=== PATIENT | male | born 1960 | race Caucasian/White ===

== ENCOUNTER 2018-05-01 10:52 | Inpatient (IN) | payer OTHER ==
[2018-05-01 12:21] VITALS: BMI 29.2
--- NOTE | 2018-05-01 14:37 | HP ---
CIWA Score - CIWA Score Nausea/Vomitin-Mild Nausea/No Vomiting Muscle Tremors: 4-Moderate,w/Arms Extend Anxiety: 4-Mod. Anxious/Guarded Agitation: 4-Moderately Restless Paroxysmal Sweats: 1-Minimal Palms Moist Orientation: 0-Oriented Tacttile Disturbances: 2-Mild Itch/Numbness/Burn Auditory Disturbances: 0-None Visual Disturbances: 0-None Headache: 0-None Present CIWA-Ar Total Score: 16 Admission ROS S - HPI Chief Complaint: ALCOHOL WITHDRAWAL SX Allergies/Adverse Reactions: Allergies Allergy/AdvReac Type Severity Reaction Status Date / Time penicillin G Allergy Severe Swelling Verified 05/01/18 13:03 History of Present Illness: 57 YEARS OLD MALE WITH LONG HISTORY OF ALCOHOL DEPENDENCE HAS ASTHMA HYPERCHOLESTEROLEMIA HYPERTENSION DIABETES II POSITIVE PPD AND DEPRESSION IS ADMITTED TO DETOX Exam Limitations: No Limitations - Ebola screening Have you traveled outside of the country in the last 21 days: No Have you had contact with anyone from an Ebola affected area: No Have you been sick,other than usual withdrawal symptoms: No Do you have a fever: No - Review of Systems Constitutional: Changes in sleep, Weight Stable EENT: reports: No Symptoms Reported Respiratory: reports: SOB with Exertion Cardiac: reports: No Symptoms Reported GI: reports: Nausea, Poor Fluid Intake, Abdominal cramping : reports: No Symptoms Reported Musculoskeletal: reports: No Symptoms Reported Integumentary: reports: No Symptoms Reported Neuro: reports: Tremors Endocrine: reports: Increased Urine Hematology: reports: No Symptoms Reported Psychiatric: reports: Judgement Intact, Orientated x3, Anxious, Depressed Other Systems: Reviewed and Negative Patient History - Patient Medical History Hx Anemia: No Hx Asthma: Yes Hx Chronic Obstructive Pulmonary Disease (COPD): No Hx Cancer: No Hx Cardiac Disorders: Yes (stent x1 in 2007/CABAG 2016) Hx Congestive Heart Failure: No Hx Hypertension: Yes Hx Hypercholesterolemia: Yes Hx Pacemaker: No HX Cerebrovascular Accident: No Hx Seizures: No Hx Dementia: No Hx Diabetes: Yes (NIDDM) Hx Gastrointestinal Disorders: No Hx Liver Disease: No Hx Genitourinary Disorders: No Hx Sexually Transmitted Disorders: No Hx Renal Disease (ESRD): No Hx Thyroid Disease: No Hx Human Immunodeficiency Virus (HIV): No Hx Hepatitis C: Yes (FATTY LIVER) Hx Depression: Yes Hx Suicide Attempt: No Hx Bipolar Disorder: No Hx Schizophrenia: No - Patient Surgical History Past Surgical History: Yes Hx Neurologic Surgery: No Hx Cataract Extraction: No Hx Cardiac Surgery: Yes (stent x1 in 2007/cardiac catheterization x2) Hx Lung Surgery: Yes (pneumothorax/chest tube in 1983) Hx Breast Surgery: No Hx Breast Biopsy: No Hx Abdominal Surgery: No Hx Appendectomy: No Hx Cholecystectomy: No Hx Genitourinary Surgery: No Hx Orthopedic Surgery: Yes (RIGHT ANKLE 2009) Anesthesia Reaction: No - PPD History Previous Implant?: Yes Documented Results: Positive w/o proof Implanted On Prior [facility] Admission?: No PPD to be Administered?: No - Smoking Cessation Smoking history: Never smoked Have you smoked in the past 12 months: No Hx Chewing Tobacco Use: No Initiated information on smoking cessation: No - Substance & Tx. History Hx Alcohol Use: Yes Hx Substance Use: No Hx Substance Use Treatment: No - Substances Abused Alcohol-beer Route: Oral Frequency: Daily Amount used: 2-6 pks. Age of first use: 17 Date of Last Use: 05/01/18 Family Disease History - Family Disease History Family Disease History: Diabetes: Grandparent, Brother, Sister, Heart Disease: Father (), Mother, Brother, Other: Father Admission Physical Exam S - Vital Signs Vital Signs: Vital Signs - 24 hr 05/01/18 12:16 Temperature 100.3 F H Pulse Rate 84 Respiratory 20 Rate Blood Pressure 139/73 - Physical General Appearance: Yes: Appropriately Dressed, Mild Distress, Alcohol on Breath , Tremorous, Irritable, Sweating, Anxious HEENTM: Yes: Hearing grossly Normal, Normocephalic, Normal Voice Respiratory: Yes: Chest Non-Tender, No Respiratory Distress, No Accessory Muscle Use, Wheezing, Expiration Neck: Yes: Supple, Trachea in good position Breast: Yes: Breasts Symetrical, No Discharge Cardiology: Yes: Regular Rhythm, Regular Rate, S1, S2 Abdominal: Yes: Normal Bowel Sounds, Non Tender, Flat, Soft Genitourinary: Yes: Within Normal Limits Back: Yes: Normal Inspection Musculoskeletal: Yes: full range of Motion, Gait Steady, Muscle Pain (RIGHT ANKLE) Extremities: Yes: Normal Inspection, Normal Range of Motion, Non-Tender, Tremors , Swelling (RIGHT ANKLE) Neurological: Yes: Fully Oriented, Alert, Motor Strength 5/5, Normal Response, Depressed Affect Integumentary: Yes: Warm Lymphatic: Yes: Within Normal Limits - Diagnostic (1) Alcohol dependence with uncomplicated withdrawal Current Visit: Yes Status: Acute (2) Asthma Current Visit: Yes Status: Chronic Qualifiers: Asthma severity: mild Asthma persistence: intermittent Asthma complication type: with status asthmaticus Qualified Code(s): J45.22 - Mild intermittent asthma with status asthmaticus (3) Hypercholesteremia Current Visit: Yes Status: Chronic (4) Hypertension Current Visit: Yes Status: Chronic Qualifiers: Hypertension type: essential hypertension Qualified Code(s): I10 - Essential (primary) hypertension (5) Diabetes mellitus type II, controlled Current Visit: Yes Status: Chronic Qualifiers: Diabetes mellitus terminologist insulin use: without terminologist use Diabetes mellitus complication status: with neurologic complications Diabetes mellitus complication detail: with other neurological complication Qualified Code(s): E11.49 - Type 2 diabetes mellitus with other diabetic neurological complication (6) Positive PPD, treated Current Visit: No Status: Resolved (7) Right ankle swelling Current Visit: Yes Status: Chronic (8) H/O heart artery stent Current Visit: Yes Status: Resolved (9) S/P CABG (coronary artery bypass graft) Current Visit: Yes Status: Resolved Cleared for Admission [facility] - Detox or Rehab [facility] Level of Care: Medically Managed Detox Regimen/Protocol: Librium S Breath Alcohol Content Breath Alcohol Content: 0.114 Urine Drug Screen - Results Drug Screen Negative: Yes
[2018-05-01] MEDS ORDERED: MAGNESIUM HYDROX 2400MG/30ML ORAL SUSPENSION 30 ML CUP PO PRN (14:46)
[2018-05-01] MEDS ORDERED: MAG HYDROX/AL HYDROX/SIMETH 30 ML UNIT-DOSE CUP PO PRN (14:46)
[2018-05-01] MEDS ORDERED: P-EPHED 60MG/TRIPROLIDI 2.5MG TABLET PO PRN (14:46)
[2018-05-01] MEDS ORDERED: MENTHOL/PHENOL 1 EACH UD MM PRN (14:46)
[2018-05-01] MEDS ORDERED: guaiFENesin/D-METHORPHAN HB 10 ML UNIT-DOSE CUPS PO PRN (14:46)
[2018-05-01] MEDS ORDERED: ACETAMINOPHEN 325 MG TABLET (FP) PO PRN (14:46)
[2018-05-01] MEDS ORDERED: MAGNESIUM CITRATE 300 ML BOTTLE PO PRN (14:46)
[2018-05-01] MEDS ORDERED: LOPERAMIDE HCL 2 MG CAPSULE PO PRN (14:46)
[2018-05-01] MEDS ORDERED: ALBUTEROL SO4 8 GM HFA INHALER IH PRN (14:48)
[2018-05-01] MEDS ORDERED: ALBUTEROL SO4 0.083% IH SOL 2.5 MG/3 ML VIAL.NEB. NEB PRN (14:51)
[2018-05-01] MEDS: chlordiazePOXIDE HCL 25 MG CAPSULE PO PRN ×2 (15:50→20:53)
[2018-05-01 17:14] LABS: URINE APPEARANCE CLEAR; URINE BILIRUBIN NEGATIVE (<2.0 mg/dL); URINE COLOR LTYELLOW; URINE GLUCOSE (UA) NEGATIVE (NEGATIVE); URINE KETONE NEGATIVE (NEGATIVE); URINE LEUK ESTERASE NEGATIVE (NEGATIVE); URINE NITRITE NEGATIVE (NEGATIVE); URINE PROTEIN NEGATIVE (NEGATIVE); URINE UROBILINOGEN NEGATIVE mg/dL (0.2-1.0)
[2018-05-01] MEDS: metFORMIN HCL 500 MG TABLET (FP) PO SCH (17:25)
[2018-05-01] MEDS: chlordiazePOXIDE HCL 25 MG CAPSULE PO SCH ×2 (17:46→22:44)
[2018-05-01] MEDS ORDERED: MELATONIN 5 MG TABLETS PO PRN (22:00)
[2018-05-01] MEDS: THIAMINE HCL 100 MG TABLET (FP) PO SCH (22:44)
[2018-05-02] MEDS: chlordiazePOXIDE HCL 25 MG CAPSULE PO SCH ×4 (06:46→22:19)
[2018-05-02] MEDS: metFORMIN HCL 500 MG TABLET (FP) PO SCH ×2 (06:49→17:25)
--- NOTE | 2018-05-02 08:09 | CONSULT ---
[facility] Psychiatric Consult - Data Date of interview: 05/02/18 Admission source: [facility] Identifying data: This is 57 years old male, single father of two, living with family, on SSD, Wwith no psychiatric hoispitalization history, wity multiole medical problems, long history of Alcohol dependence , is reporting Alcohol withdrawal symptoms and seeking for detox. Substance Abuse History: - Smoking Cessation. Smoking history: Never smoked. Have you smoked in the past 12 months: No. Hx Chewing Tobacco Use: No. Initiated information on smoking cessation: No. - Substance & Tx. History. Hx Alcohol Use: Yes. Hx Substance Use: No. Hx Substance Use Treatment: No. - Substances Abused. Alcohol-beer. Route: Oral. Frequency: Daily. Amount used: 2-6 pks. Age of first use: 17. Date of Last Use: 05/01/18 Medical History: HTN, Hypercholesterolemia, Asthma, DM-II, PPD + history, S/P Cardiac stent placement, S/P CABG history. Psychiatric History: Patient denies past psychiatric hospitalization hiustory, denies psychiatric medicstions usage prior to admission. Patient denies suicidal, homicidal history. Physical/Sexual Abuse/Trauma History: Denies Additional Comment: Observation. Detox Unit Care Protocol Mental Status Exam - Mental Status Exam Alert and Oriented to: Person Cognitive Function: Fair Patient Appearance: Unkempt Mood: Sad Affect: Flat Patient Behavior: Sedated Speech Pattern: Delayed Voice Loudness: Mildly Soft/Quiet Thought Process: Circumstantial Thought Disorder: Being Controlled Hallucinations: Denies Suicidal Ideation: Denies Homicidal Ideation: Denies Insight/Judgement: Fair Sleep: Difficulty falling asleep Appetite: Fair Muscle strength/Tone: Mild Hypotonicity Gait/Station: Shuffling Additional Comments: Observation. Detox Unit Care Protocol Psychiatric Findings - Problem List ([place] 1, 2,3) (1) Alcohol-induced mood disorder Current Visit: Yes Status: Suspected (2) Alcohol dependence with uncomplicated withdrawal Current Visit: Yes Status: Acute (3) Asthma Current Visit: Yes Status: Chronic Qualifiers: Asthma severity: mild Asthma persistence: intermittent Asthma complication type: with status asthmaticus Qualified Code(s): J45.22 - Mild intermittent asthma with status asthmaticus (4) Diabetes mellitus type II, controlled Current Visit: Yes Status: Chronic Qualifiers: Diabetes mellitus medical terminologist insulin use: without medical terminologist use Diabetes mellitus complication status: with neurologic complications Diabetes mellitus complication detail: with other neurological complication Qualified Code(s): E11.49 - Type 2 diabetes mellitus with other diabetic neurological complication (5) Hypercholesteremia Current Visit: Yes Status: Chronic (6) Hypertension Current Visit: Yes Status: Chronic Qualifiers: Hypertension type: essential hypertension Qualified Code(s): I10 - Essential (primary) hypertension (7) H/O heart artery stent Current Visit: Yes Status: Resolved (8) S/P CABG (coronary artery bypass graft) Current Visit: Yes Status: Resolved - Initial Treatment Plan Initial Treatment Plan: Observation. Detox Unit Care Protocol
[2018-05-02 10:07] LABS: HEMATOCRIT 33.6 % (35.4-49); HEMOGLOBIN 11.3 GM/dL (11.7-16.9); MCH 32.9 pg (25.7-33.7); MCHC 33.7 g/dl (32.0-35.9); MEAN CELL VOLUME 97.7 fl (80-96); MEAN PLT VOLUME 9.2 fl (7.5-11.1); PLATELET COUNT 48 K/MM3 (134-434); RBC 3.44 M/mm3 (4.00-5.60); RDW 19.5 % (11.9-15.9); WHITE BLOOD COUNT 7.6 K/mm3 (4.0-10.0)
[2018-05-02 10:14] LABS: CHLORIDE 103 mmol/L (98-107); POTASSIUM 3.8 mmol/L (3.5-5.1); SODIUM 139 mmol/L (136-145)
[2018-05-02] MEDS: ENALAPRIL MALEATE 10 MG TABLET (FP) PO SCH (10:28)
[2018-05-02] MEDS: PRENATAL VITAMINS W/ FOLIC ACID TABLET (FP) PO SCH (10:28)
[2018-05-02] MEDS: ASPIRIN COATED 81 MG TABLET.EC PO SCH (10:28)
--- NOTE | 2018-05-02 10:35 | EKG ---
Test Reason : Blood Pressure : / mmHG Vent. Rate : 088 BPM Atrial Rate : 088 BPM P-R Int : 140 ms QRS Dur : 090 ms QT Int : 384 ms P-R-T Axes : 069 061 069 degrees QTc Int : 464 ms NORMAL SINUS RHYTHM POSSIBLE LEFT ATRIAL ENLARGEMENT LEFT VENTRICULAR HYPERTROPHY ABNORMAL ECG NO PREVIOUS ECGS AVAILABLE Confirmed by PAULINA SANDERS MD ([id number]) on 05/02/2018 10:34:40 AM Referred By: Confirmed By:PAULINA SANDERS MD
[2018-05-02 10:57] LABS: ALBUMIN 2.9 g/dl (3.4-5.0); ALK PHOS 258 U/L (45-117); ANION GAP 11 (8-16); BILIRUBIN,TOTAL 2.7 mg/dL (0.2-1.0); BLOOD UREA NITROGEN 5 mg/dL (7-18); CALCIUM 8.3 mg/dL (8.5-10.1); CO2 25 mmol/L (21-32); CREATININE 0.8 mg/dL (0.7-1.3); GLUCOSE,RANDOM 291 mg/dL (74-106); SGOT/AST 138 U/L (15-37); SGPT/ALT 54 U/L (12-78); TOT PROT 8.7 g/dl (6.4-8.2)
[2018-05-02] MEDS: ROSUVASTATIN CA 10 MG TABLET (FP) PO SCH (11:13)
--- NOTE | 2018-05-02 11:48 | PN ---
[facility] CIWA - CIWA Score Nausea/Vomitin Muscle Tremors: 3 Anxiety: 3 Agitation: 3 Paroxysmal Sweats: 1-Minimal Palms Moist Orientation: 0-Oriented Tacttile Disturbances: 1-Very Mild Itch/Numbness Auditory Disturbances: 1-Very Mild Visual Disturbances: 0-None Headache: 2-Mild CIWA-Ar Total Score: 17 S Progress Note (SOAP) Subjective: alert,irritable,anxious,interrupted sleep,tremor Objective: 05/02/18 11:43 Vital Signs Temperature 98.1 F 05/02/18 09:17 Pulse Rate 84 05/02/18 09:17 Respiratory Rate 18 05/02/18 09:17 Blood Pressure 144/86 05/02/18 09:17 O2 Sat by Pulse Oximetry (%) ekg nsr,lvh qt/qtc 384/464 no chest pain,no sob,no dizziness Laboratory Last Values WBC 7.6 K/mm3 (4.0-10.0) 05/02/18 06:00 RBC 3.44 M/mm3 (4.00-5.60) L 05/02/18 06:00 Hgb 11.3 GM/dL (11.7-16.9) L 05/02/18 06:00 Hct 33.6 % (35.4-49) L 05/02/18 06:00 MCV 97.7 fl (80-96) H 05/02/18 06:00 MCH 32.9 pg (25.7-33.7) 05/02/18 06:00 MCHC 33.7 g/dl (32.0-35.9) 05/02/18 06:00 RDW 19.5 % (11.9-15.9) H 05/02/18 06:00 Plt Count 48 K/MM3 (134-434) L 05/02/18 06:00 MPV 9.2 fl (7.5-11.1) 05/02/18 06:00 Sodium 139 mmol/L (136-145) 05/02/18 06:00 Potassium 3.8 mmol/L (3.5-5.1) 05/02/18 06:00 Chloride 103 mmol/L (98-107) 05/02/18 06:00 Carbon Dioxide 25 mmol/L (21-32) 05/02/18 06:00 Anion Gap 11 (8-16) 05/02/18 06:00 BUN 5 mg/dL (7-18) L 05/02/18 06:00 Creatinine 0.8 mg/dL (0.7-1.3) 05/02/18 06:00 Creat Clearance w eGFR > 60 (>60) 05/02/18 06:00 POC Glucometer 245 UNITS (80-120) 05/02/18 11:17 Random Glucose 291 mg/dL (74-106) H 05/02/18 06:00 Calcium 8.3 mg/dL (8.5-10.1) L 05/02/18 06:00 Total Bilirubin 2.7 mg/dL (0.2-1.0) H 05/02/18 06:00 AST 138 U/L (15-37) H 05/02/18 06:00 ALT 54 U/L (12-78) 05/02/18 06:00 Alkaline Phosphatase 258 U/L (45-117) H 05/02/18 06:00 Total Protein 8.7 g/dl (6.4-8.2) H 05/02/18 06:00 Albumin 2.9 g/dl (3.4-5.0) L 05/02/18 06:00 Urine Color Ltyellow 05/01/18 16:01 Urine Appearance Clear 05/01/18 16:01 Urine pH 7.0 (5.0-8.0) 05/01/18 16:01 Ur Specific [place] 1.003 (1.001-1.035) 05/01/18 16:01 Urine Protein Negative (NEGATIVE) 05/01/18 16:01 Urine Glucose (UA) Negative (NEGATIVE) 05/01/18 16:01 Urine Ketones Negative (NEGATIVE) 05/01/18 16:01 Urine Blood Negative (NEGATIVE) 05/01/18 16:01 Urine Nitrite Negative (NEGATIVE) 05/01/18 16:01 Urine Bilirubin Negative (<2.0 mg/dL) 05/01/18 16:01 Urine Urobilinogen Negative mg/dL (0.2-1.0) 05/01/18 16:01 Ur Leukocyte Esterase Negative (NEGATIVE) 05/01/18 16:01 Assessment: 05/02/18 11:46 withdrawal symptom Plan: continue detox,ast 138,glucose 245,bgm monitoring,d/c tylenol for elevation of ast
[2018-05-02] MEDS: chlordiazePOXIDE HCL 25 MG CAPSULE PO PRN (11:58)
--- NOTE | 2018-05-02 15:17 | PN ---
[facility] Progress Note Note: Laboratory Last Values WBC 7.6 K/mm3 (4.0-10.0) 05/02/18 06:00 RBC 3.44 M/mm3 (4.00-5.60) L 05/02/18 06:00 Hgb 11.3 GM/dL (11.7-16.9) L 05/02/18 06:00 Hct 33.6 % (35.4-49) L 05/02/18 06:00 MCV 97.7 fl (80-96) H 05/02/18 06:00 MCH 32.9 pg (25.7-33.7) 05/02/18 06:00 MCHC 33.7 g/dl (32.0-35.9) 05/02/18 06:00 RDW 19.5 % (11.9-15.9) H 05/02/18 06:00 Plt Count 48 K/MM3 (134-434) L 05/02/18 06:00 MPV 9.2 fl (7.5-11.1) 05/02/18 06:00 Sodium 139 mmol/L (136-145) 05/02/18 06:00 Potassium 3.8 mmol/L (3.5-5.1) 05/02/18 06:00 Chloride 103 mmol/L (98-107) 05/02/18 06:00 Carbon Dioxide 25 mmol/L (21-32) 05/02/18 06:00 Anion Gap 11 (8-16) 05/02/18 06:00 BUN 5 mg/dL (7-18) L 05/02/18 06:00 Creatinine 0.8 mg/dL (0.7-1.3) 05/02/18 06:00 Creat Clearance w eGFR > 60 (>60) 05/02/18 06:00 POC Glucometer 245 UNITS (80-120) 05/02/18 11:17 Random Glucose 291 mg/dL (74-106) H 05/02/18 06:00 Calcium 8.3 mg/dL (8.5-10.1) L 05/02/18 06:00 Total Bilirubin 2.7 mg/dL (0.2-1.0) H 05/02/18 06:00 AST 138 U/L (15-37) H 05/02/18 06:00 ALT 54 U/L (12-78) 05/02/18 06:00 Alkaline Phosphatase 258 U/L (45-117) H 05/02/18 06:00 Total Protein 8.7 g/dl (6.4-8.2) H 05/02/18 06:00 Albumin 2.9 g/dl (3.4-5.0) L 05/02/18 06:00 Urine Color Ltyellow 05/01/18 16:01 Urine Appearance Clear 05/01/18 16:01 Urine pH 7.0 (5.0-8.0) 05/01/18 16:01 Ur Specific [place] 1.003 (1.001-1.035) 05/01/18 16:01 Urine Protein Negative (NEGATIVE) 05/01/18 16:01 Urine Glucose (UA) Negative (NEGATIVE) 05/01/18 16:01 Urine Ketones Negative (NEGATIVE) 05/01/18 16:01 Urine Blood Negative (NEGATIVE) 05/01/18 16:01 Urine Nitrite Negative (NEGATIVE) 05/01/18 16:01 Urine Bilirubin Negative (<2.0 mg/dL) 05/01/18 16:01 Urine Urobilinogen Negative mg/dL (0.2-1.0) 05/01/18 16:01 Ur Leukocyte Esterase Negative (NEGATIVE) 05/01/18 16:01 D/C TYLENOL DUE TO AST 138,BILI 2,7 REPEAT CMP,INR IN AM BGM MONITORING ALSO HAS THROMBOCYTOPENIA WILL REPEAT CC IN AM
--- NOTE | 2018-05-02 17:09 | PN ---
[facility] Progress Note Note: Vital Signs Temperature 98.2 F 05/02/18 13:13 Pulse Rate 81 05/02/18 13:13 Respiratory Rate 18 05/02/18 13:13 Blood Pressure 152/86 05/02/18 13:13 O2 Sat by Pulse Oximetry (%) Laboratory Last Values WBC 7.6 K/mm3 (4.0-10.0) 05/02/18 06:00 RBC 3.44 M/mm3 (4.00-5.60) L 05/02/18 06:00 Hgb 11.3 GM/dL (11.7-16.9) L 05/02/18 06:00 Hct 33.6 % (35.4-49) L 05/02/18 06:00 MCV 97.7 fl (80-96) H 05/02/18 06:00 MCH 32.9 pg (25.7-33.7) 05/02/18 06:00 MCHC 33.7 g/dl (32.0-35.9) 05/02/18 06:00 RDW 19.5 % (11.9-15.9) H 05/02/18 06:00 Plt Count 48 K/MM3 (134-434) L 05/02/18 06:00 MPV 9.2 fl (7.5-11.1) 05/02/18 06:00 Sodium 139 mmol/L (136-145) 05/02/18 06:00 Potassium 3.8 mmol/L (3.5-5.1) 05/02/18 06:00 Chloride 103 mmol/L (98-107) 05/02/18 06:00 Carbon Dioxide 25 mmol/L (21-32) 05/02/18 06:00 Anion Gap 11 (8-16) 05/02/18 06:00 BUN 5 mg/dL (7-18) L 05/02/18 06:00 Creatinine 0.8 mg/dL (0.7-1.3) 05/02/18 06:00 Creat Clearance w eGFR > 60 (>60) 05/02/18 06:00 POC Glucometer 312 UNITS (80-120) 05/02/18 16:30 Random Glucose 291 mg/dL (74-106) H 05/02/18 06:00 Calcium 8.3 mg/dL (8.5-10.1) L 05/02/18 06:00 Total Bilirubin 2.7 mg/dL (0.2-1.0) H 05/02/18 06:00 AST 138 U/L (15-37) H 05/02/18 06:00 ALT 54 U/L (12-78) 05/02/18 06:00 Alkaline Phosphatase 258 U/L (45-117) H 05/02/18 06:00 Total Protein 8.7 g/dl (6.4-8.2) H 05/02/18 06:00 Albumin 2.9 g/dl (3.4-5.0) L 05/02/18 06:00 Urine Color Ltyellow 05/01/18 16:01 Urine Appearance Clear 05/01/18 16:01 Urine pH 7.0 (5.0-8.0) 05/01/18 16:01 Ur Specific [place] 1.003 (1.001-1.035) 05/01/18 16:01 Urine Protein Negative (NEGATIVE) 05/01/18 16:01 Urine Glucose (UA) Negative (NEGATIVE) 05/01/18 16:01 Urine Ketones Negative (NEGATIVE) 05/01/18 16:01 Urine Blood Negative (NEGATIVE) 05/01/18 16:01 Urine Nitrite Negative (NEGATIVE) 05/01/18 16:01 Urine Bilirubin Negative (<2.0 mg/dL) 05/01/18 16:01 Urine Urobilinogen Negative mg/dL (0.2-1.0) 05/01/18 16:01 Ur Leukocyte Esterase Negative (NEGATIVE) 05/01/18 16:01 BGM 312 patient on metformin 500 mg. Patient BGM consistently high. One time dose novolog 4 units increase fluids continue to monitor
[2018-05-02] MEDS ORDERED: INSULIN (NOVOLOG) ASPART 100 UNITS/ML 10ML VIAL SQ ONE (17:30)
[2018-05-02] MEDS ORDERED: INSULIN (NOVOLOG) ASPART 100 UNITS/ML 10ML VIAL ONE (17:37)
[2018-05-02] MEDS: THIAMINE HCL 100 MG TABLET (FP) PO SCH (22:19)
[2018-05-03] MEDS: chlordiazePOXIDE HCL 25 MG CAPSULE PO SCH ×2 (05:41→10:30)
[2018-05-03] MEDS: metFORMIN HCL 500 MG TABLET (FP) PO SCH ×2 (06:39→17:11)
[2018-05-03 09:51] LABS: HEMATOCRIT 34.6 % (35.4-49); HEMOGLOBIN 11.8 GM/dL (11.7-16.9); MCH 33.3 pg (25.7-33.7); MEAN PLT VOLUME 8.8 fl (7.5-11.1); PLATELET COUNT 51 K/MM3 (134-434); RBC 3.53 M/mm3 (4.00-5.60); WHITE BLOOD COUNT 6.1 K/mm3 (4.0-10.0)
[2018-05-03 10:03] LABS: CHLORIDE 108 mmol/L (98-107); POTASSIUM 3.8 mmol/L (3.5-5.1); SODIUM 141 mmol/L (136-145)
[2018-05-03] MEDS: ENALAPRIL MALEATE 10 MG TABLET (FP) PO SCH (10:30)
[2018-05-03] MEDS: ASPIRIN COATED 81 MG TABLET.EC PO SCH (10:30)
[2018-05-03] MEDS: ROSUVASTATIN CA 10 MG TABLET (FP) PO SCH (10:30)
[2018-05-03] MEDS: PRENATAL VITAMINS W/ FOLIC ACID TABLET (FP) PO SCH (10:30)
[2018-05-03 10:31] LABS: ALBUMIN 2.6 g/dl (3.4-5.0); ALK PHOS 206 U/L (45-117); ANION GAP 7 (8-16); BLOOD UREA NITROGEN 8 mg/dL (7-18); CALCIUM 8.7 mg/dL (8.5-10.1); CO2 26 mmol/L (21-32); CREATININE 0.6 mg/dL (0.7-1.3); GLUCOSE,RANDOM 149 mg/dL (74-106); SGOT/AST 90 U/L (15-37); SGPT/ALT 39 U/L (12-78); TOT PROT 7.7 g/dl (6.4-8.2)
--- NOTE | 2018-05-03 11:09 | PN ---
S CIWA - CIWA Score Nausea/Vomitin Muscle Tremors: 3 Anxiety: 2 Agitation: 2 Paroxysmal Sweats: 1-Minimal Palms Moist Orientation: 0-Oriented Tacttile Disturbances: 1-Very Mild Itch/Numbness Auditory Disturbances: 1-Very Mild Visual Disturbances: 0-None Headache: 2-Mild CIWA-Ar Total Score: 15 [facility] Progress Note (SOAP) Subjective: alert,irritable,anxious,interrupted sleep,pain in the body Objective: 05/03/18 11:06 Vital Signs Temperature 98.2 F 05/03/18 09:19 Pulse Rate 81 05/03/18 09:19 Respiratory Rate 16 05/03/18 09:19 Blood Pressure 122/54 05/03/18 09:19 O2 Sat by Pulse Oximetry (%) 05/03/18 11:10 Laboratory Results - last 24 hr 05/02/18 05/02/18 05/02/18 11:17 16:30 22:18 WBC RBC Hgb Hct MCV MCH MCHC RDW Plt Count MPV Sodium Potassium Chloride Carbon Dioxide Anion Gap BUN Creatinine Creat Clearance w eGFR POC Glucometer 245 312 103 Random Glucose Calcium Total Bilirubin AST ALT Alkaline Phosphatase Total Protein Albumin 05/03/18 05/03/18 05/03/18 05:39 07:30 07:30 WBC 6.1 RBC 3.53 L Hgb 11.8 Hct 34.6 L MCV 98.0 H MCH 33.3 MCHC 34.0 RDW 19.0 H Plt Count 51 L MPV 8.8 Sodium 141 Potassium 3.8 Chloride 108 H Carbon Dioxide 26 Anion Gap 7 L BUN 8 Creatinine 0.6 L Creat Clearance w eGFR > 60 POC Glucometer 124 Random Glucose 149 H D Calcium 8.7 Total Bilirubin 3.0 H AST 90 H D ALT 39 D Alkaline Phosphatase 206 H D Total Protein 7.7 Albumin 2.6 L bili 3.0,ast90.alt39 platelet 51k thrombocytopenia history of cirrhosis of liver Assessment: 05/03/18 11:13 withdrawal symptom Plan: continue detox,patient will go to see his primary care provider and research and development specialist upon discharge
[2018-05-03 13:51] LABS: INR 1.5 (0.83-1.09)
[2018-05-03] MEDS: chlordiazePOXIDE 5 MG CAPSULE PO SCH ×2 (17:11→23:46)
[2018-05-03] MEDS: chlordiazePOXIDE HCL 25 MG CAPSULE PO PRN (18:44)
[2018-05-03] MEDS: THIAMINE HCL 100 MG TABLET (FP) PO SCH (23:46)
[2018-05-04] MEDS: chlordiazePOXIDE 5 MG CAPSULE PO SCH ×2 (05:54→10:49)
[2018-05-04] MEDS: metFORMIN HCL 500 MG TABLET (FP) PO SCH ×2 (06:30→17:58)
[2018-05-04] MEDS: ENALAPRIL MALEATE 10 MG TABLET (FP) PO SCH (10:49)
[2018-05-04] MEDS: ROSUVASTATIN CA 10 MG TABLET (FP) PO SCH (10:49)
[2018-05-04] MEDS: PRENATAL VITAMINS W/ FOLIC ACID TABLET (FP) PO SCH (10:49)
--- NOTE | 2018-05-04 11:03 | PN ---
S Progress Note (SOAP) Subjective: alert,interrupted sleep,anxious Objective: 05/04/18 11:02 Vital Signs Temperature 98.1 F 05/04/18 09:45 Pulse Rate 74 05/04/18 09:45 Respiratory Rate 16 05/04/18 09:45 Blood Pressure 132/54 05/04/18 09:45 O2 Sat by Pulse Oximetry (%) Assessment: 05/04/18 11:02 withdrawal symptom Plan: continue detox,discharge in am
[2018-05-04] MEDS: ASPIRIN COATED 81 MG TABLET.EC PO SCH (11:25)
[2018-05-04] MEDS: chlordiazePOXIDE HCL 10 MG CAPSULE PO SCH ×2 (17:58→22:11)
[2018-05-04] MEDS: THIAMINE HCL 100 MG TABLET (FP) PO SCH (22:12)
[2018-05-05] MEDS: chlordiazePOXIDE HCL 10 MG CAPSULE PO SCH ×2 (06:44→10:31)
[2018-05-05] MEDS: metFORMIN HCL 500 MG TABLET (FP) PO SCH (07:45)
--- NOTE | 2018-05-05 08:19 | PN ---
S Progress Note (SOAP) Subjective: alert,o complaint Objective: 05/05/18 08:17 Vital Signs Temperature 97.3 F L 05/05/18 07:28 Pulse Rate 69 05/05/18 07:28 Respiratory Rate 18 05/05/18 07:28 Blood Pressure 107/61 05/05/18 07:28 O2 Sat by Pulse Oximetry (%) Assessment: 05/05/18 08:17 detox completed,no withdrawal symptom Plan: discharge today,follow up with after care program as arrangement and primary care provider for medical problem
--- NOTE | 2018-05-05 08:23 | DS ---
[facility] Detox Discharge Summary Admission Date: 05/01/18 Discharge Date: 05/05/18 - History Present History: Alcohol Dependence Additional Comments: follow up with after care program as arrangement and primary care provider for medical problem Pertinent Past History: asthma hypertension type 2 dm positive ppd cad s/p angioplasty with stent cad s/p coronary by pass surgery cirrhosis of liver thrombocytopenia - Physical Exam Results Vital Signs: Vital Signs Temperature 97.3 F L 05/05/18 07:28 Pulse Rate 69 05/05/18 07:28 Respiratory Rate 18 05/05/18 07:28 Blood Pressure 107/61 05/05/18 07:28 O2 Sat by Pulse Oximetry (%) Pertinent Admission Physical Exam Findings: withdrawal signs and symptom Vital Signs Temperature 97.3 F L 05/05/18 07:28 Pulse Rate 69 05/05/18 07:28 Respiratory Rate 18 05/05/18 07:28 Blood Pressure 107/61 05/05/18 07:28 O2 Sat by Pulse Oximetry (%) Laboratory Last Values WBC 6.1 K/mm3 (4.0-10.0) 05/03/18 07:30 RBC 3.53 M/mm3 (4.00-5.60) L 05/03/18 07:30 Hgb 11.8 GM/dL (11.7-16.9) 05/03/18 07:30 Hct 34.6 % (35.4-49) L 05/03/18 07:30 MCV 98.0 fl (80-96) H 05/03/18 07:30 MCH 33.3 pg (25.7-33.7) 05/03/18 07:30 MCHC 34.0 g/dl (32.0-35.9) 05/03/18 07:30 RDW 19.0 % (11.9-15.9) H 05/03/18 07:30 Plt Count 51 K/MM3 (134-434) L 05/03/18 07:30 MPV 8.8 fl (7.5-11.1) 05/03/18 07:30 PT with INR 17.00 SEC (9.7-13.0) H 05/03/18 07:30 INR 1.50 (0.83-1.09) H 05/03/18 07:30 Sodium 141 mmol/L (136-145) 05/03/18 07:30 Potassium 3.8 mmol/L (3.5-5.1) 05/03/18 07:30 Chloride 108 mmol/L (98-107) H 05/03/18 07:30 Carbon Dioxide 26 mmol/L (21-32) 05/03/18 07:30 Anion Gap 7 (8-16) L 05/03/18 07:30 BUN 8 mg/dL (7-18) 05/03/18 07:30 Creatinine 0.6 mg/dL (0.7-1.3) L 05/03/18 07:30 Creat Clearance w eGFR > 60 (>60) 05/03/18 07:30 POC Glucometer 132 UNITS (80-120) 05/05/18 07:17 Random Glucose 149 mg/dL (74-106) H D 05/03/18 07:30 Calcium 8.7 mg/dL (8.5-10.1) 05/03/18 07:30 Total Bilirubin 3.0 mg/dL (0.2-1.0) H 05/03/18 07:30 AST 90 U/L (15-37) H D 05/03/18 07:30 ALT 39 U/L (12-78) D 05/03/18 07:30 Alkaline Phosphatase 206 U/L (45-117) H D 05/03/18 07:30 Total Protein 7.7 g/dl (6.4-8.2) 05/03/18 07:30 Albumin 2.6 g/dl (3.4-5.0) L 05/03/18 07:30 Urine Color Ltyellow 05/01/18 16:01 Urine Appearance Clear 05/01/18 16:01 Urine pH 7.0 (5.0-8.0) 05/01/18 16:01 Ur Specific [place] 1.003 (1.001-1.035) 05/01/18 16:01 Urine Protein Negative (NEGATIVE) 05/01/18 16:01 Urine Glucose (UA) Negative (NEGATIVE) 05/01/18 16:01 Urine Ketones Negative (NEGATIVE) 05/01/18 16:01 Urine Blood Negative (NEGATIVE) 05/01/18 16:01 Urine Nitrite Negative (NEGATIVE) 05/01/18 16:01 Urine Bilirubin Negative (<2.0 mg/dL) 05/01/18 16:01 Urine Urobilinogen Negative mg/dL (0.2-1.0) 05/01/18 16:01 Ur Leukocyte Esterase Negative (NEGATIVE) 05/01/18 16:01 RPR Titer Nonreactive (NONREACTIVE) 05/02/18 06:00 - Treatment Hospital Course: Detox Protocol Followed, Detoxed Safely, Responded well, Discharged Condition Good Patient has Accepted a Rehab Referral to: declined - Medication Discharge Medications: Ambulatory Orders Albuterol Sulfate Inhaler - [Ventolin Hfa Inhaler -] 2 inh PO Q4H PRN 05/01/18 Aspirin [Aspirin EC] 81 mg PO DAILY 05/01/18 Enalapril Maleate [Vasotec -] 10 mg PO DAILY 05/01/18 Metformin HCl [Glucophage] 500 mg PO BID 05/01/18 Metoprolol Succinate [Toprol Xl] 50 mg PO DAILY 05/01/18 Rosuvastatin Calcium [Crestor] 10 mg PO DAILY 05/01/18 - Diagnosis (1) Alcohol dependence with uncomplicated withdrawal Current Visit: Yes Status: Acute (2) Asthma Current Visit: Yes Status: Chronic Qualifiers: Asthma severity: mild Asthma persistence: intermittent Asthma complication type: with status asthmaticus Qualified Code(s): J45.22 - Mild intermittent asthma with status asthmaticus (3) Diabetes mellitus type II, controlled Current Visit: Yes Status: Chronic Qualifiers: Diabetes mellitus remediation project engineer insulin use: without remediation project engineer use Diabetes mellitus complication status: with neurologic complications Diabetes mellitus complication detail: with other neurological complication Qualified Code(s): E11.49 - Type 2 diabetes mellitus with other diabetic neurological complication (4) Hypercholesteremia Current Visit: Yes Status: Chronic (5) Hypertension Current Visit: Yes Status: Chronic Qualifiers: Hypertension type: essential hypertension Qualified Code(s): I10 - Essential (primary) hypertension (6) H/O heart artery stent Current Visit: Yes Status: Resolved (7) S/P CABG (coronary artery bypass graft) Current Visit: Yes Status: Resolved (8) Positive PPD, treated Current Visit: No Status: Resolved (9) Cirrhosis Current Visit: Yes Status: Acute
[2018-05-05] MEDS: PRENATAL VITAMINS W/ FOLIC ACID TABLET (FP) PO SCH (09:36)
[2018-05-05] MEDS: ROSUVASTATIN CA 10 MG TABLET (FP) PO SCH (09:36)
[2018-05-05] MEDS: ENALAPRIL MALEATE 10 MG TABLET (FP) PO SCH (09:36)
[2018-05-05] MEDS: ASPIRIN COATED 81 MG TABLET.EC PO SCH (09:36)
[2018-05-05 09:57] VITALS: BP 123/65; PULSE 70; TEMP 97.5
== END 2018-05-05 12:15 | disposition home or self-care (01) | DRG 897 ==
LOC: YASAS 10:52 → Y6N 14:57
PROVIDERS: ADMIT Surgery; ATTEND Surgery
PROC: HZ2ZZZZ Detoxification Services for Substance Abuse Treatment (ICD-10-PCS; principal; 2018-05-01)
DX: F10.230 Alcohol dependence with withdrawal, uncomplicated (principal); J45.22 Mild intermittent asthma with status asthmaticus; F10.24 Alcohol dependence with alcohol-induced mood disorder; E11.49 Type 2 diabetes mellitus with other diabetic neurological complication; E78.00 Pure hypercholesterolemia, unspecified; I10 Essential (primary) hypertension; R76.11 Nonspecific reaction to tuberculin skin test without active tuberculosis; K74.60 Unspecified cirrhosis of liver; D69.6 Thrombocytopenia, unspecified; I25.10 Atherosclerotic heart disease of native coronary artery without angina pectoris; K76.0 Fatty (change of) liver, not elsewhere classified; M25.471 Effusion, right ankle; Z88.0 Allergy status to penicillin; Z95.5 Presence of coronary angioplasty implant and graft; Z95.1 Presence of aortocoronary bypass graft; Z79.84 Long term (current) use of oral hypoglycemic drugs
CPT/HCPCS: 36415; 71046-TC-FY; 80053; 81003; 82962; 85027; 85610; 86593; 93005; 93010